=== PATIENT | female | born 1950 | race Caucasian/White ===

== ENCOUNTER 2017-12-13 20:10 | Emergency (ER) | payer MEDICARE ==
--- NOTE | 2017-12-13 22:45 | ED ---
Abdominal Pain/Female - HPI Summary HPI Summary: Patient presents with lower pelvic pain that started this morning after she woke up. Since then it has been mostly constant 4 of 10 pain that feels like a cramping and pressure sensation. It is worse after urinating for a few hours. Denies dysuria however she's had very dark urine which prompted her to go to [facility] earlier today. She reports they analyzed her urine and told her it looked normal and referred her here for further testing. She denies nausea, vomiting, diarrhea and last bowel movement was 2 days ago which is normal for her. She reports she's been known to go 1 to 2 weeks without having a bowel movement due to her opioid-induced constipation. She takes up to 120 mg of oxycodone daily for bilateral radicular neuritis. Additionally she does admit to a history of GI ulcer when she was taking naproxen for this condition. Since stopping this medication and starting a PPI, she's had no issues. She denies epigastric pain today and no signs of melena or hematochezia. She also admits to a history of chronic anemia of unknown origin. She follows with Dr. Redman and reports this is stable at present. She denies any history of UTIs or kidney stones as well as liver or renal failure. She does take a handful of medications daily for her pain control however none of these include Tylenol except for Excedrin. She denies any noticeable pressure in her vaginal canal as well as irritation, change in urinary habits like urinary urgency or frequency. She does admit sometimes she has incomplete emptying sensation followed by the ability to move more urine. She is status post hysterectomy and noticed these symptoms after that. She follows with Dr. Shelley annually and he is aware of this sx - has had no concerns or complaints. Additionally, pt admit to a family history of her father having colon cancer but having resection and living into his mid 90's. Her mother however was diagnosed with what sounds like an aggressive extraintestinal cancer (GIST?) which was initially removed but then grew back shortly after and had expanded tremendously throughout her abdominal cavity, ultimately causing her in her 50's. - History of Current Complaint Chief Complaint: EDUrogenitalProblems Stated Complaint: BROWN COLORED URINE Time Seen by Provider: 12/13/17 22:17 Hx Obtained From: Patient, Family/Die Baker - Pain Intensity: 4 Allergies/Adverse Reactions: Allergies Allergy/AdvReac Type Severity Reaction Status Date / Time butorphanol [From Stadol] Allergy Unknown Verified 12/13/17 20:17 Reaction Details MS Atropine [Atropine] Allergy Unknown Verified 12/09/15 09:02 Reaction Details MS Morphine [Morphine] Allergy Unknown Verified 12/09/15 09:02 Reaction Details MS Niacin [Niacin] Allergy Unknown Verified 12/09/15 09:02 Reaction Details MS Statins [Statins] Allergy Unknown Verified 12/09/15 09:02 Reaction Details MS Verapamil [From Calan SR] Allergy Unknown Verified 12/09/15 09:02 Reaction Details Home Medications: Home Medications Excedrin Migraine Caplet 2 tab PO BID PRN 12/13/17 [History Confirmed 12/13/17] SUMAtriptan SQ* [Imitrex SQ*] SUBCUT SEE INSTRUCTIONS PRN 12/13/17 [History] Vitamin B Complex 2,000 mg PO DAILY 12/13/17 [History Confirmed 12/13/17] Vitamin B Complex CAP* 2,000 mg PO DAILY 12/13/17 [History Confirmed 12/13/17] PMH/Surg Hx/FS Hx/Imm Hx Previously Healthy: Yes Endocrine/Hematology History: Reports: Hx Anemia - chronic - follows w/ [facility] Denies: Hx Anticoagulant Therapy, Hx Blood Disorders, Hx Diabetes Cardiovascular History: Denies: Hx Hypertension, Hx Pacemaker/ICD Respiratory History: Denies: Hx Asthma GI History: Reports: Hx Ulcer - NSAID induced , Other GI Disorders - opiate induced constipation Denies: Hx Cirrhosis, Hx Crohn's Disease, Hx Diverticulosis, Hx Gall Bladder Disease, Hx Gastroesophageal Reflux Disease, Hx Gastrointestinal Bleed, Hx Hiatal Hernia, Hx Irritable Bowel History: Denies: Hx Kidney Infection, Hx Kidney Stones, Hx Renal Disease Sensory History: Denies: Hx Hearing Aid Neurological History: Reports: Other Neuro Impairments/Disorders - neuropathy of B/L feet (retired ballerina) Psychiatric History: Denies: Hx Panic Disorder - Surgical History Surgery Procedure, Year, and Place: HYSTERECTOMY, OOPHERECTOMY; BILATERAL FOOT TUMORS X12 ALL BENIGN; 2003 DORSAL COLUMN STIMULATOR PUT IN AND REMOVED(DONE IN [place]...DR HICKS LOOKED AT [facility] DONE 12/19/2012 AND VERIFIED ALL WIRES WERE REMOVED) Infectious Disease History: No Infectious Disease History: Denies: Traveled Outside the [place] in Last 30 Days - Family History Known Family History: Positive: Cardiac Disease, Other - Social History Occupation: Retired Lives: With Family - of 40 yrs Alcohol Use: None Hx Substance Use: No Substance Use Type: Reports: None Hx Tobacco Use: No Smoking Status (MU): Never Smoked Tobacco Review of Systems Positive: Chills Negative: Chest Pain Negative: Shortness Of Breath Positive: Abdominal Pain. Negative: Vomiting, Diarrhea, Nausea Genitourinary: Other - pressure and cramping after urination Positive: flank pain - Rt - mild intermittent today, hematuria - dark urine- possible hematuria. Negative: burning, dysuria, discharge, frequency, incontinence, urgency Musculoskeletal: Negative Skin: Negative Neurological: Negative Psychological: Normal All Other Systems Reviewed And Are Negative: Yes Physical Exam Triage Information Reviewed: Yes Vital Signs On Initial Exam: Initial Vitals Temp Pulse Resp BP Pulse Ox 97.1 F 83 20 175/89 100 12/13/17 20:17 12/13/17 20:17 12/13/17 20:17 12/13/17 20:17 12/13/17 20:17 Vital Signs Reviewed: Yes Appearance: Positive: Well-Appearing, Well-Nourished, Pain Distress - mild 4/10 Skin: Positive: Warm, Skin Color Reflects Adequate Perfusion, Dry - old scar over Rt ab - pt reports she had a dorsal column a stimulator placed here x 2 Head/Face: Positive: Normal Head/Face Inspection Eyes: Positive: Normal, EOMI, Conjunctiva Clear - anicteric sclera ENT: Positive: Normal ENT inspection, Hearing grossly normal, Pharynx normal - mucosa moist Neck: Positive: Supple, Nontender Respiratory/Lung Sounds: Positive: Clear to Auscultation, Breath Sounds Present. Negative: Rales, Rhonchi, Wheezes Cardiovascular: Positive: Normal, RRR, S1, S2. Negative: Leg Edema Left, Leg Edema Right Abdomen Description: Positive: Soft, CVA Tenderness (R) - mild, Distended - mild , Other: - lwoer central pelvis - no rebounding. Negative: CVA Tenderness (L), Guarding, Hernia @, Hepatomegaly Bowel Sounds: Positive: Present Pelvic Exam: Positive: Other - deferred Musculoskeletal: Positive: Normal, Strength/ROM Intact Neurological: Positive: Alert, Oriented to Person Place, Time, CN Intact II- III. Negative: Sensory/Motor Intact - motor intact - hypersensitive along heels of feet - needs feet propped - can't touch bed Psychiatric: Positive: Normal Diagnostics - Vital Signs Vital Signs Temp Pulse Resp BP Pulse Ox 12/13/17 20:17 97.1 F 83 20 175/89 100 - Laboratory Result Diagrams: 12/13/17 22:47 12/13/17 22:47 Lab Statement: Any lab studies that have been ordered have been reviewed, and results considered in the medical decision making process. Re-Evaluation - Re-Evaluation First Eval Change: Improved - resting comfortably on stretcher Abdominal Pain Fem Course/Dx - Course Course Of Treatment: Pt presents w/ acute onset 4/10 cramping lower central pelvic pain/pressure that started this morning. Persists throughout the day so she came here for evaluation. Her urine is dark in color (although she reports it's been improving since earlier today) and so U/A and urinary tract pathology suspected. Her U/A was found to have low specific gravity, leukocytes WBC's and no RBC's/blood or urobili. The explanation for her discoloration is unknown at this time and w/ a strong fam h/o GI cancers, a CT w/ contrast was ordered to assess and GI systems. Her WBC's are unremarkable for infection and renal/ liver functions appear well. Her chronic anemia appears to continue to be stabe (if not slightly improved from previous visit). CT scan report reveals moderate hiatal hernia (pt aware - no s/sx of discomfort here) and moderate fecal load (pt also aware). No other acute findings. Discussed case w/ Dr. Ibrahim who feels pt is safe for d/c. Will tx UTI w/ leukocytes in urine and pt agrees to start tomorrow. She will address her constipation as well. Reviewed danger s/sx of when to return to ED. Pt and agree w/ plan. - Diagnoses Provider Diagnoses: UTI (urinary tract infection), Constipation due to opioid therapy Discharge - Sign-Out/Discharge Documenting (check all that apply): Patient Departure - Discharge Plan Condition: Stable Disposition: HOME Prescriptions: Ciprofloxacin TAB* [Cipro 500 MG TAB*] 500 mg PO BID #6 tab Phenazopyridine 200 mg (NF) [Pyridium 200 MG tab *] 200 mg PO TID PRN #6 tab PRN Reason: Pain Patient Education Materials: Urinary Tract Infection in Women (ED), Constipation (ED), Hiatal Hernia (ED) Referrals: Susi Vergara MD [Primary Care Provider] - Zacarias Shelley MD [Medical Doctor] - Additional Instructions: Drink plenty of water Complete medications as directed Implement methods for constipation control as well as to reduce pelvic pain/ pressure symptoms Follow-up with PCP and urology - call tomorrow to update conditions *If worse, return to the ED - Billing Disposition and Condition Condition: STABLE Disposition: Home
[2017-12-13 22:59] LABS: ABS Basophils 0.1 10^3/ul (0-0.2); ABS Eosinophils 0.3 10^3/ul (0-0.6); ABS Lymphocytes 1.2 10^3/ul (1.0-4.8); ABS Monocytes 0.8 10^3/ul (0-0.8); ABS Neutrophils 4.6 10^3/ul (1.5-7.7); ABS Nucleated RBC 0 10^3/ul; Eosinophil % 4.3 % (0-6); Hematocrit 32 % (35-47); Hemoglobin 10.4 g/dl (12.0-16.0); Lymphocyte % 17.7 % (25-47); Mean Corpuscular HGB Conc 33 g/dl (31-36); Mean Corpuscular Hemoglobin 27 pg (27-31); Mean Corpuscular Volume 84 fL (80-97); Mean Platelet Volume 8.5 um3 (7.4-10.4); Nucleated Red Blood Cells % 0.1; Platelet Count 408 10^3/ul (150-450); Red Cell Distribution Width 15 % (10.5-15); White Blood Count 7.1 10^3/ul (3.5-10.8)
[2017-12-13 23:02] LABS: INR 0.92 (0.77-1.02)
[2017-12-13 23:05] LABS: Urine Appearance Clear; Urine Blood Negative (Negative); Urine Color Yellow; Urine Ketones Negative (Negative); Urine Protein Negative (Negative); Urine Red Blood Cell Trace(0-2/hpf) (Absent); Urine Specific Gravity 1.009 (1.010-1.030); Urine Urobilinogen Negative (Negative); Urine White Blood Cell 3+(>20/hpf) (Absent)
[2017-12-13 23:11] LABS: EGFR Non-African American 60.7 (>60)
[2017-12-14 04:20] VITALS: BP 126/76
--- NOTE | 2017-12-14 07:56 | RAD ---
INDICATION: Dark urine, lower pelvic pain, constipation. COMPARISON: There are no prior studies available for comparison. TECHNIQUE: A CT scan of the abdomen and pelvis was performed without intravenous and with oral contrast. Contiguous axial sections were obtained from the lung bases through the symphysis pubis. Images were reconstructed in the coronal and sagittal planes. FINDINGS: The lung bases are clear. No pleural effusion is present. The liver and spleen are normal in size. There is a small focal area of decreased attenuation present in the anterior aspect of the left hepatic lobe suggestive of focal fatty infiltration. No other focal abnormalities are seen. The pancreas appears to be within normal limits. The adrenal glands and kidneys are normal in size. No renal calculi or hydronephrosis is seen. The aorta is normal in caliber with moderate calcific plaque present. No significant enlarged retroperitoneal lymph nodes are seen. There is a moderate size hiatal hernia. The stomach, small and large bowel appear nondistended. The appendix is not visualized and there are no findings to suggest acute appendicitis. There is mild descending and sigmoid diverticulosis without evidence for diverticulitis. There is a small to moderate amount of residual stool. There is a small periumbilical hernia containing fat. The patient is status post hysterectomy. No free intraperitoneal air or fluid is seen. There appears to be a large hemangioma in the L5 vertebral body. No other focal osseous abnormalities are seen. IMPRESSION: 1. NO EVIDENCE FOR ACUTE INTRA-ABDOMINAL ABNORMALITY. 2. MODERATE SIZE HIATAL HERNIA.
== END 2017-12-14 04:18 | disposition home or self-care (01) ==
LOC: ED 20:10
DX: N39.0 Urinary tract infection, site not specified (principal); K59.03 Drug induced constipation; T40.2X5A Adverse effect of other opioids, initial encounter; Y92.9 Unspecified place or not applicable; D64.9 Anemia, unspecified; K44.9 Diaphragmatic hernia without obstruction or gangrene; Z80.0 Family history of malignant neoplasm of digestive organs; Z88.8 Allergy status to other drugs, medicaments and biological substances
CPT/HCPCS: 36415; 74176; 80053; 81003; 81015; 82550; 83605; 83690; 83735; 85025; 85610; 85730; 86140; 87086; 99282

== ENCOUNTER 2018-09-23 18:39 | Emergency (ER) | payer MEDICARE ==
--- NOTE | 2018-09-23 19:35 | ED ---
Neck Pain - HPI Summary HPI Summary: Pt is a 68 y/o female who presents to the ED c/o neck pain. Around 13:30 today she suddenly had severe neck pain, located in her posterior right side near the base of her neck. She also states that her neck is locked to the right side. Pain is constant and is rated a 9/10 in severity. Pain is made worse with movement of her neck, and sitting up. She denies any ALVARES or paresthesia of her BUE. Pt has taken Oxycodone without relief. Shes had one prior episode of neck pain, however it only lasted 2 hours and improved after pain medications. PMHx migraines, neuropathy. Pts BP upon arrival to the ED was 222/100, however she denies any hx of HTN. - History of Current Complaint Chief Complaint: EDNeckComplaint Stated Complaint: NECK PAIN PER EMS Time Seen by Provider: 09/23/18 19:20 Hx Obtained From: Patient, Family/Chain Hooker - Onset/Duration Of Injury/Symptoms: Hours - 13:30 today Mechanism Of Injury: No Known Trauma Timing: Constant Onset/Duration: Sudden Onset, Still Present Severity Currently: Severe Pain Intensity: 9 Pain Scale Used: 0-10 Numeric Location: Discrete At: - right posterior neck Aggravating Factors: Movement - of neck, sitting up Alleviating Factors: Nothing Associated Signs & Symptoms: Negative: Headache - Allergies/Home Medications Allergies/Adverse Reactions: Allergies Allergy/AdvReac Type Severity Reaction Status Date / Time butorphanol [From Stadol] Allergy Unknown Verified 12/13/17 20:17 Reaction Details MS Atropine [Atropine] Allergy Unknown Verified 12/09/15 09:02 Reaction Details MS Morphine [Morphine] Allergy Unknown Verified 12/09/15 09:02 Reaction Details MS Niacin [Niacin] Allergy Unknown Verified 12/09/15 09:02 Reaction Details MS Statins [Statins] Allergy Unknown Verified 12/09/15 09:02 Reaction Details MS Verapamil [From Calan SR] Allergy Unknown Verified 12/09/15 09:02 Reaction Details Home Medications: Home Medications DULoxetine DR CAP* [Cymbalta CAP*] 60 mg PO DAILY 09/23/18 [History Confirmed ] Gabapentin CAP(*) [Neurontin 100 mg CAP(*)] 200 mg PO TID 09/23/18 [History Confirmed 09/23/18] PMH/Surg Hx/FS Hx/Imm Hx Endocrine/Hematology History: Reports: Hx Thyroid Disease - hypothyroidism, Hx Anemia - chronic - follows w/ [facility] Denies: Hx Anticoagulant Therapy, Hx Blood Disorders, Hx Diabetes Cardiovascular History: Denies: Hx Hypertension, Hx Pacemaker/ICD Respiratory History: Denies: Hx Asthma GI History: Reports: Hx Ulcer - NSAID induced , Other GI Disorders - opiate induced constipation Denies: Hx Cirrhosis, Hx Crohn's Disease, Hx Diverticulosis, Hx Gall Bladder Disease, Hx Gastroesophageal Reflux Disease, Hx Gastrointestinal Bleed, Hx Hiatal Hernia, Hx Irritable Bowel History: Denies: Hx Kidney Infection, Hx Kidney Stones, Hx Renal Disease Sensory History: Denies: Hx Hearing Aid Neurological History: Reports: Hx Migraine, Other Neuro Impairments/Disorders - neuropathy of B/L feet (retired [employer]) Psychiatric History: Denies: Hx Panic Disorder - Surgical History Surgery Procedure, Year, and Place: HYSTERECTOMY, OOPHERECTOMY; BILATERAL FOOT TUMORS X12 ALL BENIGN; 2003 DORSAL COLUMN STIMULATOR PUT IN AND REMOVED(DONE IN [place]...DR HICKS LOOKED AT [facility] DONE 12/19/2012 AND VERIFIED ALL WIRES WERE REMOVED) Infectious Disease History: No Infectious Disease History: Denies: Traveled Outside the [place] in Last 30 Days - Family History Known Family History: Positive: Cardiac Disease - Social History Alcohol Use: None Hx Substance Use: No Substance Use Type: Reports: None Hx Tobacco Use: No Smoking Status (MU): Never Smoked Tobacco Review of Systems Positive: Myalgia - neck pain, Other - neck "locked" to right Negative: Headache, Paresthesia - BUE All Other Systems Reviewed And Are Negative: Yes Physical Exam - Summary Physical Exam Summary: Appearance: well appearing, no pain distress Skin: warm, dry, reflects adequate perfusion Head/face: normal Eyes: EOMI, JATINDER ENT: mucous membranes moist Neck: supple, non-tender Respiratory: CTA, breath sounds present Cardiovascular: RRR, pulses symmetrical Abdomen: non-tender, soft Bowel Sounds: present Musculoskeletal: tenderness along trapezius insertion in occiput on right side, right paracervical musculature tenderness, limited ROM of neck due to pain Neuro: normal, sensory motor intact, A&Ox3 Triage Information Reviewed: Yes Vital Signs On Initial Exam: Initial Vitals Temp Pulse Resp BP Pulse Ox 98.6 F 92 21 222/100 100 09/23/18 18:52 09/23/18 18:52 09/23/18 18:52 09/23/18 18:52 09/23/18 18:52 Vital Signs Reviewed: Yes Procedures - Procedure Summary Procedure Summary: Trigger Point Injection: done for pain, patient laid supine, right trapezius musculature cleaned with alcohol, musculature was injected with a total of 12 cc 0.5% Bupivacaine with Epinephrine in divided aliquots which was then massaged through the tissue, pain relief excellent, ROM restored, procedure tolerated well without complications. Diagnostics - Vital Signs Vital Signs Temp Pulse Resp BP Pulse Ox 09/23/18 18:52 98.6 F 92 21 222/100 100 - Laboratory Result Diagrams: 09/23/18 19:37 09/23/18 19:37 Lab Statement: Any lab studies that have been ordered have been reviewed, and results considered in the medical decision making process. - EKG 19:52 Cardiac Rate: NL - 88 bpm EKG Rhythm: Sinus Rhythm ST Segment: Normal Summary of EKG Findings: Nl axis, nl intervals Re-Evaluation - Re-Evaluation First Eval Re-Evaluation Time: 20:25 Change: Unchanged Comment: Pt's symptoms did not change after Benadryl. Second Eval Re-Evaluation Time: 20:45 Change: Unchanged Comment: Pt is unchanged after the trigger point injection. Third Eval Re-Evaluation Time: 21:25 Change: Improved Comment: Pt's pain is greatly improved. BP is now normalized. Neck Course/Dx - Course Course Of Treatment: Patient with a history of chronic pain and muscle spasms in the past. She is maintained on opiate pain control and also muscle relaxants. She received trigger point injection with improvement. Her range of motion improved. She was given pain control as well and will follow-up with her pain management doctors. - Diagnoses Differential Dx/HQI/PQRI: Positive: Other - Torticollis, muscle spasm, dystonia , cervical strain Provider Diagnoses: Trapezius muscle spasm Discharge - Sign-Out/Discharge Documenting (check all that apply): Patient Departure - Discharge Patient Received Moderate/Deep Sedation with Procedure: No - Discharge Plan Condition: Improved Disposition: HOME Patient Education Materials: Muscle Spasm (ED) Referrals: Susi Vergara MD [Primary Care Provider] - Additional Instructions: Call your doctor first thing in the morning for reevaluation and recheck of your blood pressure. The blood pressure is normalized here. Inquire if you can be cleared for physical therapy her chiropractor. Return with increased pain, worse, new symptoms or other concerns. Massaged, icing and range of motion exercises will help. Use her pain medicine and muscle relaxers as previously prescribed. - Billing Disposition and Condition Condition: IMPROVED Disposition: Home - Attestation Statements Document Initiated by Perla: Yes Documenting Scribe: Charmaine Vogel Provider For Whom Perla is Documenting (Include Credential): Justin Solares MD Scribe Attestation: ICharmaine, scribed for Justin Solares MD on 09/24/18 at 0543. Scribe Documentation Reviewed: Yes Provider Attestation: The documentation as recorded by the Charmaine gonzales accurately reflects the service I personally performed and the decisions made by me, Justin Solares MD Status of Scribe Document: Viewed
[2018-09-23] MEDS ORDERED: diPHENhydraMINE IV* 50 MG/ML 1 ml VIAL (BENADRYL) IV ONE (19:42)
[2018-09-23] MEDS ORDERED: Bupivacaine 0.5% W/EPI SDV* 30 ML VIAL INJ ONE (19:42)
[2018-09-23 19:58] LABS: ABS Basophils 0.1 10^3/ul (0-0.2); ABS Eosinophils 0.3 10^3/ul (0-0.6); ABS Lymphocytes 1.5 10^3/ul (1.0-4.8); ABS Monocytes 0.6 10^3/ul (0-0.8); ABS Neutrophils 3.9 10^3/ul (1.5-7.7); Eosinophil % 4.9 %; Hematocrit 31 % (35-47); Hemoglobin 10.2 g/dL (12.0-16.0); Mean Corpuscular HGB Conc 33 g/dL (31-36); Mean Corpuscular Hemoglobin 26 pg (27-31); Mean Corpuscular Volume 81 fL (80-97); Mean Platelet Volume 8.6 fL (7.4-10.4); Nucleated Red Blood Cells % 0.1; Platelet Count 432 10^3/uL (150-450); Red Blood Count 3.88 10^6 /uL (3.70-4.87); Red Cell Distribution Width 16 % (10.5-15); White Blood Count 6.3 10^3/uL (3.5-10.8)
[2018-09-23] MEDS ORDERED: Bupivacaine 0.5% W/EPI SDV* 30 ML VIAL ONE (20:08)
[2018-09-23 20:13] LABS: Troponin I 0.01 ng/mL (<0.04)
[2018-09-23 20:21] LABS: Albumin 4.2 g/dL (3.2-5.2); Albumin/Globulin Ratio 1.6 (1-3); BUN/Creatinine Ratio 10.2 (8-20); Calcium 9.4 mg/dL (8.6-10.3); EGFR African American 68.1 (>60); EGFR Non-African American 56.3 (>60); Globulin 2.7 g/dL (2-4); Potassium 4.3 mmol/L (3.5-5.0); Total Bilirubin 0.2 mg/dL (0.2-1.0); Total Protein 6.9 g/dL (6.4-8.9)
[2018-09-23] MEDS ORDERED: LORazepam INJ* 2 MG/ML 1 ML VIAL IV PUSH ONE (20:49)
[2018-09-23] MEDS ORDERED: Lorazepam PYXIS KEY PRN (20:49)
[2018-09-23] MEDS ORDERED: Lorazepam PYXIS KEY ONE (20:58)
[2018-09-23] MEDS ORDERED: fentaNYL* 50 MCG/ML 2 ML VIAL (100 MCG VIAL) IV SLOW PU ONE (21:28)
[2018-09-23 22:24] VITALS: BP 173/89
== END 2018-09-23 22:25 | disposition home or self-care (01) ==
LOC: ED 18:39
DX: M62.838 Other muscle spasm (principal); E03.9 Hypothyroidism, unspecified
CPT/HCPCS: 36415; 80053; 84484; 85025; 93005; 96374; 96375; 96376; 99283; J1200; J2060; J3010